=== PATIENT | female | born 1945 | race Caucasian/White ===

== ENCOUNTER 2018-10-14 15:43 | Emergency (ER) | payer MEDICARE ==
--- NOTE | 2018-10-14 16:19 | RAD ---
CHEST 1 VIEW: Date: 10/14/18 HISTORY: Chest pain COMPARISON: Radiograph dated 12/06/17. FINDINGS: Heart size enlarged. There is a peripheral opacity left mid lung. No pneumothorax. No large effusion. IMPRESSION: Peripheral opacity left mid lung appears well defined. This may reflect a mass or infection. Follow-u p after treatment recommended. If the patient is not having pneumonia type symptoms, a CT of the ches t would be recommended. POS: [facility]
[2018-10-14 16:23] LABS: Band 5 % (5-11); Hemoglobin 13.3 g/dL (12.0-16.0); Lymphocytes 3 % (21-51); MDiff Complete? YES; Mean Corpuscular HGB CONC 32.4 g/dL (32.0-36.0); Mean Corpuscular Hemoglobin 29.9 pg (27.0-31.0); Mean Corpuscular Volume 92.2 fL (78.0-98.0); Monocytes 5 % (0-10); Neutrophil 85 % (42-75); PLT Morphology Comment Appears Adequate; Platelet Count 240 thou/uL (130-400); RBC Distribution Width 14.2 % (11.5-14.5); RBC Morphology Normal; Reactive Lymphocytes 2 % (0-10); Red Blood Cell (RBC) Count 4.45 mill/uL (4.20-5.40); White Blood Cell (WBC) Count 16.1 thou/uL (4.8-10.8)
[2018-10-14 16:28] LABS: ALT (SGPT) 16 U/L (8-55); AST (SGOT) 14 U/L (5-34); Albumin 3.8 g/dL (3.4-4.8); Alkaline Phosphatase 102 U/L (40-150); Anion Gap 18 mmol/L (10-20); BUN (Urea Nitrogen) 32 mg/dL (9.8-20.1); Bilirubin, Total 0.9 mg/dL (0.2-1.2); Calc. Creatinine Clearance 0 mL/min (70-130); Calcium 10.1 mg/dL (7.8-10.44); Carbon Dioxide 24 mmol/L (23-31); Chloride 103 mmol/L (98-107); Estimated GFR-MDRD 37; Glucose 189 mg/dL (83-110); Potassium 4.1 mmol/L (3.5-5.1); Protein, Total 6.8 g/dL (6.0-8.3); Sodium 141 mmol/L (136-145)
[2018-10-14 16:31] LABS: INR-International Normal Ratio 2.8; Prothrombin Time 29.7 SEC (12.0-14.7)
[2018-10-14] MEDS ORDERED: Sodium Chloride 0.9% 1,000 ML ONE (16:36)
[2018-10-14] MEDS ORDERED: Sodium Chloride 0.9% 100 ML ONE ×2 (16:37→17:22)
[2018-10-14] MEDS ORDERED: cefTRIAXone\\ROCEPHIN 1 GM VIAL ONE (16:37)
[2018-10-14 17:08] LABS: Bilirubin Small (Negative); Blood, Urine Negative (Negative); Clarity Hazy (Clear); Glucose, Urine (Dipstick) Negative (Negative); Leukocyte Negative (Negative); Nitrite Negative (Negative); Protein, Urine (Dipstick) Negative (Neg-Trace)
[2018-10-14] MEDS ORDERED: Azithromycin 500 MG VIAL ONE (17:21)
--- NOTE | 2018-10-14 17:22 | CT ---
CT CHEST NONCONTRAST: INDICATIONS: Cough. Chest pain. Abnormal opacity of the left lung. FINDINGS: There is a focus of consolidation containing air bronchograms within the lingula. Additional scatter ed reticulonodular ground glass opacities of the left upper and left lower lobe were present. There is pleural interstitial prominence of the right lung, which may relate to a mild degree of fibrosis. No evidence of pleural effusion or pneumothorax. There is diffuse vascular disease, including coron arpita artery calcium. The regional soft tissues, including the vasculature and lymph nodes, are limite d in assessment without the presence of IV contrast. Scattered osseous degenerative change is presen t. IMPRESSION: Moderate-sized region of focal consolidation containing air bronchograms of the lingula with addition al scattered reticulonodular ground glass opacities throughout the left lung. Findings may relate to multifocal pneumonia. Recommend imaging followup subsequent to complete of treatment regimen, to confirm complete resolutio n of findings. CODE T POS: [facility]
[2018-10-14] MEDS ORDERED: Sodium Chloride 0.9% 500 ML ONE (18:11)
[2018-10-14] MEDS ORDERED: Acetaminophen 500 MG TAB ONE (19:17)
[2018-10-14] MEDS ORDERED: Acetaminophen 325 MG TAB PO PRN (23:13)
[2018-10-14] MEDS ORDERED: Ondansetron ODT 4 MG TAB SL PRN (23:13)
[2018-10-14] MEDS ORDERED: Ondansetron PF 4 MG/2 ML Vial IVP PRN (23:13)
[2018-10-14] MEDS ORDERED: Insulin Regular 300 UNITS/3 ML VIAL SC PRN (23:14)
[2018-10-14] MEDS ORDERED: Dextrose 5% in Water 1,000 ML IV PRN (23:14)
[2018-10-14] MEDS ORDERED: Dextrose 50% Abboject 50 ML SYRINGE IVP PRN (23:14)
[2018-10-14] MEDS ORDERED: Sodium Chloride 0.9% 1,000 ML IV SCH (23:15)
[2018-10-15] MEDS ORDERED: Azithromycin 500 MG in Sodium Chloride 0.9% 250 ML 250 ML IVPB SCH (16:00)
[2018-10-15] MEDS ORDERED: cefTRIAXone\\ROCEPHIN 1 GM in Sodium Chloride 0.9% 100 ML IVPB SCH (17:00)
== END 2018-10-14 21:46 | disposition short-term general hospital (02) ==
LOC: MADERS 15:43
DX: J18.1 Lobar pneumonia, unspecified organism (principal); R74.0 Nonspecific elevation of levels of transaminase and lactic acid dehydrogenase [LDH]; I48.91 Unspecified atrial fibrillation; E11.9 Type 2 diabetes mellitus without complications; E78.5 Hyperlipidemia, unspecified; I10 Essential (primary) hypertension; Z79.899 Other long term (current) drug therapy; Z79.01 Long term (current) use of anticoagulants; Z79.4 Long term (current) use of insulin
CPT/HCPCS: 71045; 71250; 80053; 81003; 82550; 83605; 84484; 85025; 85610; 85730; 87040; 87077; 87086; 87149; 87804; 93005; 94760; 96361; 96365; 96367; J0456; J0696; J7050